=== PATIENT | male | born 1950 | race Caucasian/White ===

== ENCOUNTER 2018-08-14 10:55 | Emergency (ER) | payer MEDICARE, OTHER ==
[~2018-08-14] VITALS: Ht 180.3 cm; Wt 99.4 kg
[2018-08-14 12:23] LABS: BASOPHILS # (AUTO) 0.1 X10'3 (0-0.2); BASOPHILS % (AUTO) 0.7 % (0-1); EOSINOPHILS # (AUTO) 0.1 X10'3 (0-0.9); EOSINOPHILS % (AUTO) 0.9 % (0-6); HEMATOCRIT 38.3 % (42.0-52.0); HEMOGLOBIN 12.5 g/dl (14.0-17.9); LYMPHOCYTES % (AUTO) 8.7 % (21-51); MEAN CORPUSCULAR HEMOGLOBIN 28.8 PG (27.0-31.0); MEAN CORPUSCULAR HGB CONC 32.7 g/dL (33.0-36.5); MEAN CORPUSCULAR VOLUME 88.2 FL (78-98); MONOCYTES % (AUTO) 8.2 % (2-12); NEUTROPHILS # (AUTO) 9.6 X10'3 (1.8-7.7); NEUTROPHILS % (AUTO) 81.5 % (42-75); PLATELET COUNT 256 X10'3 (140-440); RED BLOOD COUNT 4.34 X10'6 (4.70-6.10); RED CELL DISTRIBUTION WIDTH 14.7 % (11.5-14.5); WHITE BLOOD COUNT 11.8 X10'3 (4.5-11.0)
[2018-08-14 12:39] LABS: ALANINE AMINOTRANSFERASE 21 U/L (12-78); ALBUMIN/GLOBULIN RATIO 0.9 (1.1-1.5); ALKALINE PHOSPHATASE 68 IU/L (46-116); ANION GAP 7 (8-16); ASPARTATE AMINO TRANSFERASE 13 U/L (10-37); BILIRUBIN,TOTAL 0.9 MG/DL (0.1-1.0); BLOOD UREA NITROGEN 7 MG/DL (7-18); BUN/CREATININE RATIO 7.7 (5.4-32.0); CALCIUM 8.6 MG/DL (8.5-10.1); CHLORIDE 99 MMOL/L (99-107); CREATININE 0.91 MG/DL (0.60-1.10); GLUCOSE 106 MG/DL (70-104); POTASSIUM 3.8 MMOL/L (3.5-5.1); SODIUM 131 MMOL/L (135-145); TOTAL CARBON DIOXIDE 25.1 MMOL/L (24-32); TOTAL PROTEIN 6.5 G/DL (6.4-8.2); eGFR 83 ML/MIN
[2018-08-14] MEDS ORDERED: iohexol 300mg/ml 100ml inj. ONE (14:05)
[2018-08-14 14:51] LABS: C-REACTIVE PROTEIN 11.87 MG/DL (0.0-0.5)
--- NOTE | 2018-08-14 15:49 | NUR ---
CALL PLACED TO [facility] TO REACH CARDIO THORACIC
--- NOTE | 2018-08-14 15:55 | NUR ---
Dr. Gomez is covering for Dr. Elena- he is in the OR and will be calling back when free.
[2018-08-14] MEDS ORDERED: DOXYCYCLINE 100MG CAPSULE PO STA (16:14)
[2018-08-14] MEDS ORDERED: DOXY100T2 PO (16:15)
[2018-08-14 16:20] VITALS: BP 123/79
[2018-08-14] MEDS ORDERED: QUET25TA PO (16:21)
== END 2018-08-14 16:32 | disposition home or self-care (01) ==
LOC: ER 10:56
DX: I48.91 Unspecified atrial fibrillation (principal); J90 Pleural effusion, not elsewhere classified; I31.3 Pericardial effusion (noninflammatory); G47.00 Insomnia, unspecified; Z96.89 Presence of other specified functional implants; Z95.0 Presence of cardiac pacemaker; Z79.899 Other long term (current) drug therapy
CPT/HCPCS: 36415; 71046; 71260; 80053; 83605; 83880; 84443; 85025; 85651; 86140; 87040; 93306; 99284; Q9967

== ENCOUNTER 2024-03-04 05:37 | Day surgery (SDC) | payer OTHER, MEDICARE ==
[2024-03-01 15:32] LABS: BILIRUBIN,URINE NEGATIVE (Neg); CLARITY,URINE CLEAR (Clear); COLOR,URINE YELLOW (Yellow); GLUCOSE, URINE NEGATIVE (Neg); KETONES,URINE NEGATIVE (Neg); LEUKOCYTE ESTERASE ,URINE NEGATIVE (Neg); NITRITES, URINE NEGATIVE (Neg); OCCULT BLOOD,URINE NEGATIVE (Neg); PH,URINE 6.5 (4.8-8.0); PROTEIN,URINE NEGATIVE (Neg); UROBILINOGEN,URINE 0.2 E.U/dL (0.2-1.0)
[2024-03-01 15:35] LABS: BASOPHILS % (AUTO) 0.5 % (0-1); EOSINOPHILS # (AUTO) 0.1 X10'3 (0-0.9); EOSINOPHILS % (AUTO) 1.4 % (0-6); LYMPHOCYTES # (AUTO) 1.8 X10'3 (1.1-4.8); LYMPHOCYTES % (AUTO) 26.7 % (21-51); MEAN CORPUSCULAR HEMOGLOBIN 32.3 PG (27.0-31.0); MEAN CORPUSCULAR HGB CONC 33.6 g/dL (33.0-36.5); MEAN CORPUSCULAR VOLUME 96.1 FL (78-98); MEAN PLATELET VOLUME 7.8 FL (7.4-10.4); MONOCYTES # (AUTO) 0.6 X10'3 (0-0.9); MONOCYTES % (AUTO) 8.7 % (2-12); NEUTROPHILS # (AUTO) 4.2 X10'3 (1.8-7.7); NEUTROPHILS % (AUTO) 62.7 % (42-75); PRE OP HEMATOCRIT 41.5 % (42.0-52.0); PRE OP HEMOGLOBIN 13.9 g/dL (14.0-17.9); PRE OP PLATELET COUNT 193 X10'3 (140-440); PRE OP WHITE BLOOD COUNT 6.7 10'3 (4.8-10.8); RED BLOOD COUNT 4.32 X10'6 (4.70-6.10); RED CELL DISTRIBUTION WIDTH 14.5 % (11.5-14.5)
[2024-03-01 15:47] LABS: UA COLLECTION TYPE CLN CATCH MIDSTREAM
[2024-03-01 15:57] LABS: ALBUMIN 3.7 G/DL (3.4-5.0); ALBUMIN/GLOBULIN RATIO 1.1 (1.1-1.5); ALKALINE PHOSPHATASE 76 IU/L (46-116); BLOOD UREA NITROGEN 19 MG/DL (7-18); CALCIUM 8.4 MG/DL (8.5-10.1); CHLORIDE 95 MMOL/L (99-107); CREATININE 1.27 MG/DL (0.60-1.10); PRE OP ALT 38 U/L (30-65); PRE OP ANION GAP 5 (8-16); PRE OP AST 28 U/L (10-37); PRE OP BILIRUB, TOTAL 1.7 MG/DL (0.0-1.0); PRE OP GLUCOSE 99 MG/DL (70-104); PRE OP POTASSIUM 3.6 MMOL/L (3.4-5.1); TOTAL CARBON DIOXIDE 30.4 MMOL/L (24-32); TOTAL PROTEIN 7.1 G/DL (6.4-8.2); eGFR 55 ML/MIN
[2024-03-01 16:03] LABS: PRE OP SODIUM 130 MMOL/L (135-145)
[2024-03-04] VITALS (11 sets, daily range): BP systolic 106–117; BP diastolic 64–71; PULSE 70–72; RESP 10–21; TEMP 99.2; O2SAT 94–99
[~2024-03-04] VITALS: Ht 180.3 cm; Wt 99.2 kg
[~2024-03-04 05:37] MED LIST: APIX5TAB3 PO; DOCUMENT DATE & TIME OF BETA-BLOCKER PO ONE; METO-411 PO; PANT-47 PO; SACU1TAB4 PO; SUCR1ORA15 PO
[2024-03-04] MEDS: ceFAZolin 2gm in dextrose, iso 50 ML IV ONE (06:13)
[2024-03-04] MEDS: famotidine 20mg tablet PO ONE (06:15)
[2024-03-04] MEDS: ringers solution, lacted 1,000 ML IV SCH (06:15)
[2024-03-04] MEDS ORDERED: bacitracin 15gm ointment TP ONE (07:06)
[2024-03-04] MEDS ORDERED: BUPIVAcaine 2.5mg/ml inj 50ml vial (contains preservative) ONE (07:06)
[2024-03-04] MEDS ORDERED: fentaNYL/PF 50MCG/1 ML 2ML syringe ONE (07:14)
[2024-03-04] MEDS ORDERED: propofol inj 20 ML IV ONE (07:15)
[2024-03-04] MEDS ORDERED: midazolam 1 mg/ML 2ml injection ONE (07:15)
[2024-03-04] MEDS ORDERED: LIDOcaine 2% (20mg/ml) 5ml vial ONE (07:15)
[2024-03-04] MEDS ORDERED: ROPIVAcaine 0.5% (5mg/ml) 30ml vial ONE (07:15)
[2024-03-04] MEDS ORDERED: dexamethasone sod phosphate 4mg/ml inj. ONE (07:15)
[2024-03-04] MEDS ORDERED: ondansetron/PF 4mg/2ml inj ONE (07:15)
[2024-03-04] MEDS ORDERED: acetaminophen 1,000mg/100ml IV 100 ML IV ONE (07:17)
[2024-03-04] MEDS ORDERED: hydrALAZINE 20mg/ml inj. IV PRN (07:20)
[2024-03-04] MEDS ORDERED: labetalol 20mg/4ml (5mg/ml) syringe IV PRN (07:20)
[2024-03-04] MEDS ORDERED: morphine 4 MG/ML inj SYRINge IV PRN (07:20)
[2024-03-04] MEDS ORDERED: fentaNYL/PF 50MCG/1 ML 2ML syringe IV PRN ×2 (07:20)
[2024-03-04] MEDS ORDERED: ringers solution, lacted 1,000 ML IV SCH (07:20)
[2024-03-04] MEDS ORDERED: ondansetron/PF 4mg/2ml inj IV PRN (07:20)
[2024-03-04] MEDS ORDERED: sevoflurane 250ml liquid IH ONE (07:55)
[2024-03-04] MEDS ORDERED: ketorolac trometh 30MG/ML vial 30 MG/ML VIAL ONE (08:47)
[2024-03-04] MEDS: morphine 2 MG/ML inj. syringe IV PRN (09:58)
== END 2024-03-04 10:36 | disposition home or self-care (01) ==
LOC: PAS 05:37
PROVIDERS: ATTEND Podiatrist Foot & Ankle Surgery
DX: M21.622 Bunionette of left foot (principal); G89.18 Other acute postprocedural pain; I10 Essential (primary) hypertension; I48.91 Unspecified atrial fibrillation; I48.92 Unspecified atrial flutter; K21.9 Gastro-esophageal reflux disease without esophagitis; Z87.891 Personal history of nicotine dependence; Z79.01 Long term (current) use of anticoagulants; Z79.899 Other long term (current) drug therapy; Z98.890 Other specified postprocedural states; Z88.0 Allergy status to penicillin; Z88.5 Allergy status to narcotic agent; Z88.6 Allergy status to analgesic agent; Z88.8 Allergy status to other drugs, medicaments and biological substances
CPT/HCPCS: 28110; 36415; 64450; 73620; 80053; 81003; 82948; 85025; 93005; A6222; J0131; J0690; J1100; J1885; J2250; J2270; J2405; J2704; J2795; J3010; J3490; J7030; J7120; L4360; Z7506; Z7508; Z7512; 76000; A4618; A6253; A6449; A7000